=== PATIENT | female | born 1985 | race African-American/Black ===

== ENCOUNTER 2018-07-05 12:21 | Inpatient (IN) ==
[2018-07-05] MEDS ORDERED: CEFTAROLINE 600 MG in SODIUM CHLORIDE 0.9% 100 ML IV STA (15:10)
[2018-07-05 15:43] LABS: Basophils # 0.1 10*3/uL (0.0-0.2); Basophils % 0.6 % (0.0-0.8); Eosinophils # 0.1 10*3/uL (0.0-0.87); Eosinophils % 0.6 % (0.00-10.9); Hematocrit 41.5 VOL% (35.7-47.0); Hemoglobin 13.5 GM/DL (12.0-16.0); Immature Granulocytes % 0.5 %; Immature Granulocytes Absolute 0.04 #; Lymphocytes # 3.1 10*3/uL (1.4-4.0); Lymphocytes % 35.4 % (21.3-54.2); Mean Corpuscular HGB Conc 32.5 GM/DL (32-36); Mean Corpuscular Hemoglobin 27 PG (27-34); Mean Corpuscular Volume 82.8 FL (87-102); Mean Platelet Volume 12.5 FL (9.6-12.0); Monocytes # 0.7 10*3/uL (0.11-0.8); Monocytes % 7.6 % (1.7-12.7); Neutrophils # 4.8 10*3/uL (1.4-7.4); Neutrophils % 55.3 % (38.7-73.9); Platelet Count 240 T/CUMM (130-400); Red Blood Count 5.01 MC/CUMM (3.8-5.5); Red Cell Distribution Width 13.4 % (9.3-17.3); White Blood Count 8.7 T/CUMM (4-12)
[2018-07-05] MEDS ORDERED: ACETAMINOPHEN 500 MG TABLET ONE (16:00)
[2018-07-05] MEDS ORDERED: ACETAMINOPHEN 500 MG TABLET PO STA (16:05)
[2018-07-05 16:12] LABS: Alanine Aminotransferase 25 U/L (13-56); Albumin 3.3 G/DL (3.4-5.0); Alkaline Phosphatase 119 U/L (45-117); Aspartate Amino Transferase 20 U/L (0-37); Bilirubin,Total < 0.39 MG/DL (0.2-1.0); Blood Urea Nitrogen 9 MG/DL (7-18); Calcium 8.8 MG/DL (8.5-10.1); Glucose 374 MG/DL (74-106); Osmolality,Calculated 281.2 MOS/KG (273-304); Sodium 134 MMOL/L (136-145); Total Protein 8.1 G/DL (6.4-8.3)
[2018-07-05] MEDS ORDERED: GLUCAGON 1 MG VIAL IM PRN (17:32)
[2018-07-05] MEDS ORDERED: ONDANSETRON 4 MG/2 ML VIAL IV PRN (17:32)
[2018-07-05] MEDS ORDERED: ACETAMINOPHEN 325 MG TABLET PO PRN (17:32)
[2018-07-05] MEDS ORDERED: HYDROmorphone 2 MG/1 ML VIAL IV PRN (17:32)
[2018-07-05] MEDS ORDERED: DEXTROSE 50% 25 GM/50 ML SYRINGE IV PRN (17:32)
[2018-07-05] MEDS ORDERED: hydrALAZINE 20 MG/1 ML VIAL IV PRN (18:00)
[2018-07-05] MEDS ORDERED: INFLUENZA VIRUS VACCINE 0.5 ML SYRINGE IM ONE (18:06)
[2018-07-05] MEDS: LISINOPRIL 20 MG TABLET PO SCH (19:14)
[2018-07-05] MEDS: INSULIN REGULAR 100 UNIT/ML SUBCUT SCH (19:16)
[2018-07-05] MEDS: SODIUM CHLORIDE 0.9% 1,000 ML IV SCH (19:20)
[2018-07-06] MEDS: INSULIN REGULAR 100 UNIT/ML SUBCUT SCH ×5 (01:30→23:53)
[2018-07-06] MEDS: CEFTAROLINE 600 MG in SODIUM CHLORIDE 0.9% 100 ML IV SCH ×2 (03:25→15:54)
[2018-07-06 06:07] LABS: Basophils % 0.5 % (0.0-0.8); Eosinophils # 0.1 10*3/uL (0.0-0.87); Eosinophils % 1.1 % (0.00-10.9); Hematocrit 37.4 VOL% (35.7-47.0); Immature Granulocytes % 0.6 %; Immature Granulocytes Absolute 0.04 #; Lymphocytes # 2.8 10*3/uL (1.4-4.0); Mean Corpuscular HGB Conc 32.1 GM/DL (32-36); Mean Corpuscular Hemoglobin 27 PG (27-34); Mean Corpuscular Volume 83.9 FL (87-102); Mean Platelet Volume 13.1 FL (9.6-12.0); Monocytes # 0.6 10*3/uL (0.11-0.8); Monocytes % 8.6 % (1.7-12.7); Neutrophils # 3.1 10*3/uL (1.4-7.4); Neutrophils % 47.2 % (38.7-73.9); Platelet Count 215 T/CUMM (130-400); Red Blood Count 4.46 MC/CUMM (3.8-5.5); Red Cell Distribution Width 13.4 % (9.3-17.3); White Blood Count 6.6 T/CUMM (4-12)
[2018-07-06 06:26] LABS: Albumin 2.7 G/DL (3.4-5.0); Bilirubin,Total 0.6 MG/DL (0.2-1.0); Calcium 8.2 MG/DL (8.5-10.1); Osmolality,Calculated 284.7 MOS/KG (273-304); Potassium 3.6 MMOL/L (3.5-5.1); Total Protein 6.5 G/DL (6.4-8.3)
[2018-07-06] MEDS: LISINOPRIL 20 MG TABLET PO SCH (08:45)
[2018-07-06] MEDS: PANTOPRAZOLE 40 MG TABLET PO SCH (09:00)
[2018-07-06] MEDS: ENOXAPARIN 40 MG/0.4 ML SYRINGE SUBCUT SCH (09:00)
[2018-07-06] MEDS ORDERED: INSULIN GLARGINE 100 UNIT/ML SUBCUT SCH ×2 (09:00→11:00)
[2018-07-06] MEDS: SODIUM CHLORIDE 0.9% 1,000 ML IV SCH (09:03)
[2018-07-06] MEDS ORDERED: LIDOCAINE 1% 20 ML VIAL ONE (09:43)
[2018-07-06] MEDS ORDERED: Empagliflozin [Jardiance] 25 MG PO SCH (11:00)
[2018-07-06] MEDS ORDERED: PROPOFOL 200 MG/20 ML VIAL IV ONE (12:02)
[2018-07-06] MEDS ORDERED: HYDROmorphone 2 MG/1 ML VIAL ONE (12:02)
[2018-07-06] MEDS ORDERED: ONDANSETRON 4 MG/2 ML VIAL ONE (12:02)
[2018-07-06] MEDS ORDERED: KETOROLAC 30 MG/1 ML VIAL ONE (12:02)
[2018-07-06] MEDS ORDERED: SEVOFLURANE 1 UNIT/15 MINUTE INH ONE (12:02)
[2018-07-06] MEDS ORDERED: PHENYLEPHRINE 1 MG/10 ML SYRINGE IV ONE (12:03)
[2018-07-06] MEDS ORDERED: hydrALAZINE 20 MG/1 ML VIAL IV ONE (12:45)
[2018-07-06] MEDS: sitaGLIPtin 100 MG TABLET PO SCH (13:23)
[2018-07-06] MEDS ORDERED: cloNIDine 0.1 MG TABLET PO PRN (14:20)
[2018-07-06] MEDS ORDERED: amLODIPine 5 MG TABLET PO ONE (14:20)
[2018-07-06] MEDS ORDERED: hydrALAZINE 20 MG/1 ML VIAL IV PRN (14:21)
[2018-07-07] MEDS: CEFTAROLINE 600 MG in SODIUM CHLORIDE 0.9% 100 ML IV SCH (03:31)
[2018-07-07] MEDS: INSULIN REGULAR 100 UNIT/ML SUBCUT SCH (06:44)
[2018-07-07] MEDS ORDERED: INSULIN GLARGINE 100 UNIT/ML SUBCUT SCH ×2 (06:46→06:47)
[2018-07-07] MEDS: PANTOPRAZOLE 40 MG TABLET PO SCH (08:51)
[2018-07-07] MEDS: LISINOPRIL 20 MG TABLET PO SCH (08:51)
[2018-07-07] MEDS: sitaGLIPtin 100 MG TABLET PO SCH (08:52)
[2018-07-07] MEDS: ENOXAPARIN 40 MG/0.4 ML SYRINGE SUBCUT SCH (08:52)
[2018-07-07] MEDS ORDERED: amLODIPine 5 MG TABLET PO SCH (09:00)
[2018-07-07 10:29] VITALS: BP 162/88
== END 2018-07-07 11:30 | disposition home or self-care (01) | DRG 380 ==
LOC: N.ED 12:21 → N.EDINP 15:41 → N.3E 17:06
PROVIDERS: ADMIT Surgery; ATTEND Surgery

== ENCOUNTER 2019-09-10 18:00 | Observation (INO) ==
[2019-09-10] MEDS ORDERED: ONDANSETRON 4 MG/2 ML VIAL IV STA (18:49)
[2019-09-10] MEDS ORDERED: hydrALAZINE 20 MG/1 ML VIAL IV STA (18:49)
[2019-09-10 19:03] LABS: Basophils % 0.3 % (0.0-0.8); Eosinophils # 0.1 10*3/uL (0.0-0.87); Eosinophils % 0.5 % (0.00-10.9); Hematocrit 32.3 VOL% (35.7-47.0); Hemoglobin 10.7 GM/DL (12.0-16.0); Immature Granulocytes % 0.3 %; Immature Granulocytes Absolute 0.03 #; Lymphocytes # 1.6 10*3/uL (1.4-4.0); Lymphocytes % 15.8 % (21.3-54.2); Mean Corpuscular HGB Conc 33.1 GM/DL (32-36); Mean Corpuscular Volume 83.5 FL (87-102); Mean Platelet Volume 11.4 FL (9.6-12.0); Monocytes % 6.1 % (1.7-12.7); Platelet Count 212 T/CUMM (130-400); Red Blood Count 3.87 MC/CUMM (3.8-5.5); Red Cell Distribution Width 13.9 % (9.3-17.3); White Blood Count 10.2 T/CUMM (4-12)
[2019-09-10 19:33] LABS: Alanine Aminotransferase 29 U/L (13-56); Albumin 2.8 G/DL (3.4-5.0); Alkaline Phosphatase 59 U/L (45-117); Amylase 25 U/L (25-115); Aspartate Amino Transferase 17 U/L (0-37); Bilirubin,Total < 0.39 MG/DL (0.2-1.0); Blood Urea Nitrogen 6 MG/DL (7-18); Calcium 7.8 MG/DL (8.5-10.1); Estimated Glom Filtration Rate 212 ML/MIN; Glucose 147 MG/DL (74-106); Osmolality,Calculated 270.1 MOS/KG (273-304); Total Protein 6.7 G/DL (6.4-8.3); Troponin I < 0.015 NG/ML (0.00-0.045)
[2019-09-10 19:40] LABS: Apearance,Urine CLEAR (Clear); Bilirubin,Urine Negative (Negative); Blood, Urine Small mg/dL (Negative); Glucose,Urine (UA) 50 mg/dL (Negative); Ketones,Urine 80 mg/dL (Negative); Mucus,Urine Occasional /LPF (Occasional); Nitrite,Urine Negative (Negative); Protein,Urine >=500 MG/DL; RBC,Urine 8 /HPF (0-4); Squamous Epithelial Cell,Urine Occasional /HPF (0-10); Urine Color Yellow (Yellow); Urine Specific Gravity 1.016 (1.001-1.035); WBC,Urine 3 /HPF (0-6)
[2019-09-10] MEDS ORDERED: MAGNESIUM SULF RIDER 2 GM in PREMIX 1 EACH IV STA (19:45)
[2019-09-10] MEDS ORDERED: POTASSIUM CHLORIDE 20 MEQ TABLET PO STA (19:46)
[2019-09-10] MEDS ORDERED: DEXTROSE 50% 25 GM/50 ML SYRINGE IV PRN (22:17)
[2019-09-10] MEDS ORDERED: ACETAMINOPHEN 325 MG TABLET PO PRN (22:17)
[2019-09-10] MEDS ORDERED: SODIUM CHLORIDE 0.9% 1,000 ML IV SCH (22:17)
[2019-09-10] MEDS ORDERED: PROMETHAZINE 25 MG/1 ML VIAL IM PRN (22:17)
[2019-09-10] MEDS ORDERED: GLUCAGON 1 MG VIAL IM PRN (22:17)
[2019-09-10] MEDS ORDERED: hydrALAZINE 20 MG/1 ML VIAL IV PRN (22:17)
[2019-09-10] MEDS: INSULIN REGULAR 100 UNIT/ML SUBCUT SCH (22:30)
[2019-09-10] MEDS: POTASSIUM CHLORIDE RIDER 10 MEQ in PREMIX 1 EACH IV PRN (23:18)
[2019-09-10] MEDS: PANTOPRAZOLE 40 MG VIAL IV SCH (23:18)
[2019-09-11] MEDS: POTASSIUM CHLORIDE RIDER 10 MEQ in PREMIX 1 EACH IV PRN (00:39)
[2019-09-11] MEDS: ONDANSETRON 4 MG/2 ML VIAL IV PRN ×2 (01:02→06:51)
[2019-09-11] MEDS: LABETALOL 200 MG TABLET PO SCH ×2 (02:05→06:11)
[2019-09-11] MEDS: INSULIN REGULAR 100 UNIT/ML SUBCUT SCH (06:12)
[2019-09-11 07:04] LABS: Basophils % 0.3 % (0.0-0.8); Eosinophils # 0.1 10*3/uL (0.0-0.87); Eosinophils % 0.5 % (0.00-10.9); Hematocrit 29.7 VOL% (35.7-47.0); Hemoglobin 9.6 GM/DL (12.0-16.0); Immature Granulocytes % 0.4 %; Immature Granulocytes Absolute 0.04 #; Lymphocytes # 2.5 10*3/uL (1.4-4.0); Lymphocytes % 27.6 % (21.3-54.2); Mean Corpuscular HGB Conc 32.3 GM/DL (32-36); Mean Corpuscular Volume 85.3 FL (87-102); Mean Platelet Volume 11.9 FL (9.6-12.0); Monocytes % 7.7 % (1.7-12.7); Neutrophils % 63.5 % (38.7-73.9); Platelet Count 208 T/CUMM (130-400); Red Blood Count 3.48 MC/CUMM (3.8-5.5); White Blood Count 9.1 T/CUMM (4-12)
[2019-09-11 07:10] VITALS: BP 157/90
[2019-09-11 07:28] LABS: Albumin 2.2 G/DL (3.4-5.0); Bilirubin,Total 0.9 MG/DL (0.2-1.0); Calcium 7.6 MG/DL (8.5-10.1); Osmolality,Calculated 267.1 MOS/KG (273-304); Total Protein 5.9 G/DL (6.4-8.3)
[2019-09-11] MEDS ORDERED: POTASSIUM CHLORIDE 20 MEQ TABLET PO PRN (07:32)
[2019-09-11] MEDS ORDERED: amLODIPine 5 MG TABLET PO SCH (09:00)
[2019-09-11] MEDS ORDERED: valACYclovir 500 MG TABLET PO SCH (09:00)
[2019-09-11] MEDS: PANTOPRAZOLE 40 MG VIAL IV SCH (09:30)
== END 2019-09-11 13:00 | disposition home or self-care (01) ==
LOC: EDBD → EDUNIT# → N.EDINP 18:00 → N.ED 18:00 → N.OB 21:18
PROVIDERS: ADMIT Obstetrics & Gynecology; ATTEND Obstetrics & Gynecology

== ENCOUNTER 2019-12-26 08:35 | Inpatient (IN) ==
[2019-12-26] MEDS ORDERED: LABETALOL 20 MG/4 ML SYRINGE IV PRN (09:47)
[2019-12-26] MEDS ORDERED: LABETALOL 100 MG/20 ML VIAL IV PRN ×2 (09:47)
[2019-12-26] MEDS ORDERED: MAGNESIUM SULF RIDER 4 GM in PREMIX 1 EACH IV ONE (09:47)
[2019-12-26] MEDS ORDERED: LABETALOL 100 MG/20 ML VIAL IV ONE (09:50)
[2019-12-26] MEDS ORDERED: MAGNESIUM SULF DRIP 40 GM/1,000 ML ML IV ONE (09:51)
[2019-12-26] MEDS ORDERED: MAGNESIUM SULF RIDER 100 ML IV ONE (09:51)
[2019-12-26] MEDS: BETAMETH SODIUM PHOS/ACETATE 30 MG/5 ML VIAL IM SCH ×2 (09:55→22:06)
[2019-12-26] MEDS ORDERED: BETAMETH SODIUM PHOS/ACETATE 30 MG/5 ML VIAL ONE (09:59)
[2019-12-26] MEDS ORDERED: MAGNESIUM SULF DRIP 40 GM/1,000 ML ML IV SCH (10:00)
[2019-12-26 10:14] LABS: Basophils % 0.2 % (0.0-0.8); Eosinophils % 0.3 % (0.00-10.9); Hematocrit 31.7 VOL% (35.7-47.0); Hemoglobin 10.7 GM/DL (12.0-16.0); Immature Granulocytes % 0.3 %; Immature Granulocytes Absolute 0.03 #; Lymphocytes # 2.1 10*3/uL (1.4-4.0); Lymphocytes % 23.8 % (21.3-54.2); Mean Corpuscular HGB Conc 33.8 GM/DL (32-36); Mean Corpuscular Volume 82.8 FL (87-102); Mean Platelet Volume 11.3 FL (9.6-12.0); Monocytes % 6.3 % (1.7-12.7); Neutrophils % 69.1 % (38.7-73.9); Platelet Count 240 T/CUMM (130-400); Red Blood Count 3.83 MC/CUMM (3.8-5.5); Red Cell Distribution Width 13.2 % (9.3-17.3); White Blood Count 8.8 T/CUMM (4-12)
[2019-12-26 10:29] LABS: INR 0.9; PT Patient Result 10.2 SECS (9.8-11.9); Partial Thromboplastin Time 28.9 SECS (23.9-33.8)
[2019-12-26 10:32] LABS: Alanine Aminotransferase 16 U/L (13-56); Albumin 2.1 G/DL (3.4-5.0); Alkaline Phosphatase 89 U/L (45-117); Aspartate Amino Transferase 17 U/L (0-37); Bilirubin,Direct < 0.100 MG/DL (0.0-0.20); Bilirubin,Total < 0.39 MG/DL (0.2-1.0); Blood Urea Nitrogen 7 MG/DL (7-18); Estimated Glom Filtration Rate 195 ML/MIN; Glucose 118 MG/DL (74-106); Osmolality,Calculated 271.8 MOS/KG (273-304); Total Protein 7.3 G/DL (6.4-8.3)
[2019-12-26 10:40] LABS: Apearance,Urine CLOUDY (Clear); Bacteria,Urine Occasional /HPF (Few); Bilirubin,Urine Negative (Negative); Blood, Urine Small mg/dL (Negative); Glucose,Urine (UA) 50 mg/dL (Negative); Hyaline Casts,Urine 31 /LPF (0-3); Ketones,Urine 80 mg/dL (Negative); Mucus,Urine Occasional /LPF (Occasional); Nitrite,Urine Negative (Negative); Protein,Urine >=500 MG/DL; RBC,Urine 7 /HPF (0-4); Squamous Epithelial Cell,Urine Many /HPF (0-10); Urine Color Amber (Yellow); Urine Specific Gravity 1.024 (1.001-1.035); WBC,Urine 5 /HPF (0-6)
[2019-12-26] MEDS: LACTATED RINGERS 1,000 ML IV SCH (10:45)
[2019-12-26] MEDS ORDERED: DEXTROSE 50% 25 GM/50 ML VIAL IV PRN (11:37)
[2019-12-26] MEDS ORDERED: GLUCAGON 1 MG VIAL IM PRN (11:37)
[2019-12-26] MEDS ORDERED: ONDANSETRON 4 MG/2 ML VIAL IV PRN (11:58)
[2019-12-26] MEDS ORDERED: ONDANSETRON 4 MG/2 ML VIAL ONE (11:59)
[2019-12-26 13:26] LABS: Apearance,Urine Slightly Hazy (Clear); Bilirubin,Urine Negative (Negative); Blood, Urine Small mg/dL (Negative); Glucose,Urine (UA) 50 mg/dL (Negative); Hyaline Casts,Urine 2 /LPF (0-3); Ketones,Urine 80 mg/dL (Negative); Mucus,Urine Occasional /LPF (Occasional); Nitrite,Urine Negative (Negative); Protein,Urine >=500 MG/DL; RBC,Urine 6 /HPF (0-4); Squamous Epithelial Cell,Urine Occasional /HPF (0-10); Urine Color Amber (Yellow); Urine Specific Gravity 1.028 (1.001-1.035); Urine Urobilinogen < 2.0 EU/DL (0.2-1.0); WBC,Urine 3 /HPF (0-6)
[2019-12-26] MEDS: ALUMINUM/MAGNES/SIMETH MAX STR 30 ML UDCUP PO PRN ×2 (14:21→20:58)
[2019-12-26] MEDS: LABETALOL 200 MG TABLET PO SCH ×3 (14:37→20:06)
[2019-12-26] MEDS: OMEPRAZOLE ODT 20 MG TABLET PER TUBE SCH (15:07)
[2019-12-26] MEDS: INSULIN REGULAR 100 UNIT/ML SUBCUT SCH ×2 (16:40→21:17)
[2019-12-26] MEDS ORDERED: ACETAMINOPHEN 500 MG TABLET PO PRN (17:44)
[2019-12-27] MEDS: LACTATED RINGERS 1,000 ML IV SCH (01:36)
[2019-12-27] MEDS: INSULIN REGULAR 100 UNIT/ML SUBCUT SCH (07:13)
[2019-12-27] MEDS: LABETALOL 200 MG TABLET PO SCH (08:55)
[2019-12-27] MEDS: OMEPRAZOLE ODT 20 MG TABLET PER TUBE SCH (08:56)
[2019-12-27 10:25] VITALS: BP 167/86
[2019-12-27 13:51] LABS: Total Protein 24 Hr Ur Result 5107 MG/24HR (0-149.1); Total Volume,Urine 775 ML (400-2000)
[2019-12-27 13:52] LABS: Creatinine Clearance Urine 76.86 ML/MIN (70-115)
== END 2019-12-27 10:32 | disposition left against medical advice (07) | DRG 566 ==
LOC: N.LDOUT 08:35 → N.LD 08:46
PROVIDERS: ADMIT Obstetrics & Gynecology; ATTEND Obstetrics & Gynecology

== ENCOUNTER 2021-08-11 21:53 | Inpatient (IN) ==
[2021-08-11] MEDS ORDERED: hydrALAZINE 20 MG/1 ML VIAL IV STA (22:03)
[2021-08-11] MEDS ORDERED: ONDANSETRON 4 MG/2 ML VIAL IV STA (22:03)
[2021-08-11] MEDS ORDERED: SODIUM CHLORIDE 0.9% 1,000 ML IV STA (22:03)
[2021-08-11] MEDS ORDERED: LABETALOL 20 MG/4 ML SYRINGE IV STA ×2 (22:47→23:46)
[2021-08-11] MEDS ORDERED: NITROGLYCERIN 2% OINT 1 INCH/GM PACK TOP STA (22:52)
[2021-08-11] MEDS ORDERED: PROMETHAZINE 25 MG/1 ML VIAL IM STA (22:52)
[2021-08-11] MEDS ORDERED: PROMETHAZINE 25 MG/1 ML VIAL ONE (22:53)
[2021-08-11] MEDS ORDERED: NITROGLYCERIN 2% OINT 1 INCH/GM PACK TOP ONE (22:53)
[2021-08-11 23:08] LABS: Basophils # 0.1 10*3/uL (0.0-0.2); Basophils % 0.5 % (0.0-0.8); Eosinophils % 0.1 % (0.00-10.9); Hematocrit 28.3 VOL% (35.7-47.0); Hemoglobin 8.1 GM/DL (12.0-16.0); Immature Granulocytes % 0.5 %; Immature Granulocytes Absolute 0.05 #; Lymphocytes # 0.8 10*3/uL (1.4-4.0); Lymphocytes % 8.5 % (21.3-54.2); Mean Corpuscular HGB Conc 28.6 GM/DL (32-36); Mean Corpuscular Volume 83.7 FL (87-102); Monocytes % 2.3 % (1.7-12.7); Neutrophils % 88.1 % (38.7-73.9); Platelet Count 350 T/CUMM (130-400); Red Blood Count 3.38 MC/CUMM (3.8-5.5); White Blood Count 9.1 T/CUMM (4-12)
[2021-08-11 23:32] LABS: Albumin 1.8 G/DL (3.4-5.0); Bilirubin,Total 0.4 MG/DL (0.20-1.00); Calcium 8.4 MG/DL (8.5-10.1); Potassium 4.2 MMOL/L (3.5-5.1); Total Protein 6.6 G/DL (6.4-8.2)
[2021-08-11 23:49] LABS: Bilirubin,Urine Negative (Negative); Blood, Urine Moderate mg/dL (Negative); Glucose,Urine (UA) 100 mg/dL (Negative); Ketones,Urine 15 mg/dL (Negative); Nitrite,Urine Negative (Negative); Protein,Urine >=300 mg/dL (Negative); Urine Appearance SL CLOUDY (Clear); Urine Color Yellow (Yellow); Urine Specific Gravity 1.025 (1.001-1.035); Urine Urobilinogen 0.2 eU/dL (<2.0); Urine pH 6.5 (4.5-8.0)
[2021-08-11 23:52] LABS: Bacteria,Urine Moderate /HPF (Few); Hyaline Casts,Urine 14 /LPF (0-3); Mucus,Urine Occasional /LPF (Occasional); RBC,Urine 9 /HPF (0-4); Squamous Epithelial Cell,Urine Occasional /HPF (0-10)
[2021-08-12] MEDS ORDERED: NICOTINE 21 MG/24 HR PATCH TRANSDERM PRN
[2021-08-12] MEDS ORDERED: hydrALAZINE 20 MG/1 ML VIAL IV PRN
[2021-08-12] MEDS ORDERED: ACETAMINOPHEN 325 MG TABLET PO PRN
[2021-08-12] MEDS ORDERED: guaiFENesin/DM ER 600-30 MG TABLET PO PRN
[2021-08-12] MEDS ORDERED: ZALEPLON 5 MG CAPSULE PO PRN
[2021-08-12] MEDS ORDERED: GLUCAGON 1 MG VIAL IM PRN ×2
[2021-08-12] MEDS ORDERED: PROMETHAZINE 25 MG TABLET PO PRN
[2021-08-12] MEDS ORDERED: diphenhydrAMINE CAP 25 MG CAPSULE PO PRN
[2021-08-12] MEDS ORDERED: DEXTROSE 50% 25 GM/50 ML VIAL IV PRN
[2021-08-12] MEDS ORDERED: DEXTROSE 10% 250 ML BAG IV PRN (00:09)
[2021-08-12] MEDS: ONDANSETRON 4 MG/2 ML VIAL IV PRN ×4 (00:42→20:38)
[2021-08-12] MEDS: SODIUM CHLORIDE 0.9% 1,000 ML IV SCH ×2 (00:58→12:36)
[2021-08-12] MEDS: PROMETHAZINE 25 MG/1 ML VIAL IM PRN ×2 (01:06→06:15)
[2021-08-12] MEDS ORDERED: cloNIDine 0.2 MG/24 HR PATCH TRANSDERM ONE (01:09)
[2021-08-12] MEDS ORDERED: FUROSEMIDE 40 MG/4 ML VIAL IV ONE (02:53)
[2021-08-12 04:11] LABS: Basophils % 0.4 % (0.0-0.8); Hematocrit 23.6 VOL% (35.7-47.0); Hemoglobin 7.2 GM/DL (12.0-16.0); Immature Granulocytes % 0.7 %; Immature Granulocytes Absolute 0.07 #; Lymphocytes # 0.8 10*3/uL (1.4-4.0); Lymphocytes % 7.9 % (21.3-54.2); Mean Corpuscular HGB Conc 30.5 GM/DL (32-36); Mean Corpuscular Volume 78.9 FL (87-102); Mean Platelet Volume 11.3 FL (9.6-12.0); Monocytes % 2.8 % (1.7-12.7); Neutrophils % 88.2 % (38.7-73.9); Platelet Count 342 T/CUMM (130-400); Red Blood Count 2.99 MC/CUMM (3.8-5.5); Red Cell Distribution Width 18.7 % (9.3-17.3); White Blood Count 10.6 T/CUMM (4-12)
[2021-08-12 04:27] LABS: Potassium 4.2 MMOL/L (3.5-5.1)
[2021-08-12 05:16] LABS: Sedimentation Rate-Westergren 135 MM/HR (0-20)
[2021-08-12] MEDS: INSULIN LISPRO 100 UNIT/ML SUBCUT SCH ×4 (07:45→21:00)
[2021-08-12] MEDS: INSULIN GLARGINE 100 UNIT/ML SUBCUT SCH (09:03)
[2021-08-12] MEDS: PANTOPRAZOLE 40 MG TABLET PO SCH (09:04)
[2021-08-12] MEDS: LABETALOL 200 MG TABLET PO SCH ×2 (09:21→20:30)
[2021-08-12 09:43] LABS: % Iron Saturation 10.2 % (18-50); Ferritin 16.9 ng/mL (8-252)
[2021-08-12 09:59] LABS: Vitamin B12 347 PG/ML (211-911)
[2021-08-12 13:38] LABS: Hemoglobin A1 (Alkaline) 97.8 % (96.5-98.5); Hemoglobin A2 (Alkaline) 2.2 % (1.5-3.5)
[2021-08-12] MEDS: FERRIC GLUCONATE COMPLEX 125 MG in SODIUM CHLORIDE 0.9% 100 ML IV SCH (14:01)
[2021-08-12] MEDS ORDERED: SODIUM BICARB INJ 150 MEQ in STERILE WATER INJ 850 ML IV SCH (15:00)
[2021-08-12] MEDS: HEPARIN 5,000 UNIT/1 ML VIAL SUBCUT SCH (15:27)
[2021-08-12 16:33] LABS: Barbiturates Screen,Urine Negative (Negative); Benzodiazepines Screen,Urine Negative (Negative); Cannabinoid Screen,Urine Negative (Negative); Opiate Screen,Urine Negative (Negative); Phencyclidine Screen,Urine Negative (Negative)
[2021-08-12] MEDS: FUROSEMIDE 40 MG/4 ML VIAL IV SCH (17:05)
[2021-08-12] MEDS ORDERED: INSULIN GLARGINE 100 UNIT/ML SUBCUT SCH (21:00)
[2021-08-13 05:18] LABS: Basophils % 0.2 % (0.0-0.8); Eosinophils % 0.1 % (0.00-10.9); Hematocrit 19.9 VOL% (35.7-47.0); Immature Granulocytes % 0.7 %; Immature Granulocytes Absolute 0.07 #; Lymphocytes # 1.2 10*3/uL (1.4-4.0); Lymphocytes % 11.7 % (21.3-54.2); Mean Corpuscular HGB Conc 30.7 GM/DL (32-36); Neutrophils % 79.3 % (38.7-73.9); Platelet Count 318 T/CUMM (130-400); Red Blood Count 2.55 MC/CUMM (3.8-5.5); Red Cell Distribution Width 18.7 % (9.3-17.3); White Blood Count 10.5 T/CUMM (4-12)
[2021-08-13 05:22] LABS: Hemoglobin 6.1 GM/DL (12.0-16.0)
[2021-08-13] MEDS ORDERED: SODIUM CHLORIDE 0.9% 1,000 ML IV PRN (05:40)
[2021-08-13] MEDS: INSULIN LISPRO 100 UNIT/ML SUBCUT SCH ×2 (08:22→12:22)
[2021-08-13 08:45] LABS: Alanine Aminotransferase 16 U/L (13-56); Albumin 1.5 G/DL (3.4-5.0); Alkaline Phosphatase 57 U/L (45-117); Aspartate Amino Transferase 18 U/L (0-37); Bilirubin,Total < 0.39 MG/DL (0.20-1.00); Blood Urea Nitrogen 29 MG/DL (7-18); Calcium 7.8 MG/DL (8.5-10.1); Carbon Dioxide 20 MMOL/L (21-32); Estimated Glom Filtration Rate 25 ML/MIN; Glucose 116 MG/DL (74-106); Osmolality,Calculated 292.8 MOS/KG (273-304); Potassium 3.7 MMOL/L (3.5-5.1); Sodium 144 MMOL/L (136-145); Total Protein 5.2 G/DL (6.4-8.2)
[2021-08-13] MEDS: PANTOPRAZOLE 40 MG TABLET PO SCH (09:22)
[2021-08-13] MEDS: LABETALOL 200 MG TABLET PO SCH (09:22)
[2021-08-13] MEDS: INSULIN GLARGINE 100 UNIT/ML SUBCUT SCH (09:22)
[2021-08-13] MEDS: FERRIC GLUCONATE COMPLEX 125 MG in SODIUM CHLORIDE 0.9% 100 ML IV SCH (09:42)
[2021-08-13] MEDS: FUROSEMIDE 40 MG/4 ML VIAL IV SCH (11:21)
[2021-08-13] MEDS: HEPARIN 5,000 UNIT/1 ML VIAL SUBCUT SCH (11:21)
[2021-08-13 14:30] VITALS: BP 156/90
[2021-08-13] MEDS ORDERED: PANTOPRAZOLE 40 MG TABLET PO SCH (21:00)
[2021-08-16 14:41] LABS: Glomerular Basement Membrane A < 0.2 U; Myeloperoxidase Antibody < 0.2 U
[2021-08-16 14:55] LABS: Antinuclear Ab, S 0.2 U
== END 2021-08-13 16:45 | disposition left against medical advice (07) | DRG 199 ==
LOC: EDBD → EDUNIT# → N.ED 21:53 → N.EDINP 08-12 → N.TELES 08-12 11:54
PROVIDERS: ADMIT Internal Medicine; ATTEND Internal Medicine

== ENCOUNTER 2021-11-25 05:36 | Inpatient (IN) ==
[2021-11-25] MEDS ORDERED: ONDANSETRON 4 MG/2 ML VIAL IV STA (06:10)
[2021-11-25] MEDS ORDERED: hydrALAZINE 20 MG/1 ML VIAL IV STA ×2 (06:12→07:36)
[2021-11-25] MEDS ORDERED: FUROSEMIDE 40 MG/4 ML VIAL IV STA ×2 (06:12→06:14)
[2021-11-25 06:25] LABS: Basophils # 0.1 10*3/uL (0.0-0.2); Basophils % 0.8 % (0.0-0.8); Eosinophils # 0.1 10*3/uL (0.0-0.87); Eosinophils % 0.6 % (0.00-10.9); Hematocrit 23.3 VOL% (35.7-47.0); Hemoglobin 6.7 GM/DL (12.0-16.0); Immature Granulocytes % 0.7 %; Immature Granulocytes Absolute 0.06 #; Lymphocytes # 1.1 10*3/uL (1.4-4.0); Lymphocytes % 12.1 % (21.3-54.2); Mean Corpuscular HGB Conc 28.8 GM/DL (32-36); Mean Corpuscular Volume 82.3 FL (87-102); Mean Platelet Volume 11.4 FL (9.6-12.0); Monocytes # 0.5 10*3/uL (0.11-0.8); Monocytes % 5.2 % (1.7-12.7); Neutrophils % 80.6 % (38.7-73.9); Platelet Count 359 T/CUMM (130-400); Red Blood Count 2.83 MC/CUMM (3.8-5.5); Red Cell Distribution Width 17.7 % (9.3-17.3); White Blood Count 8.9 T/CUMM (4-12)
[2021-11-25 06:38] LABS: Albumin 2.1 G/DL (3.4-5.0); Bilirubin,Total 0.5 MG/DL (0.20-1.00); Calcium 8.3 MG/DL (8.5-10.1); Osmolality,Calculated 293.8 MOS/KG (273-304); Potassium 4.4 MMOL/L (3.5-5.1); Total Protein 5.8 G/DL (6.4-8.2)
[2021-11-25] MEDS ORDERED: MORPHINE 10 MG/1 ML VIAL IV STA (07:36)
[2021-11-25 08:57] LABS: Hyaline Casts,Urine 11 /LPF (0-3); Mucus,Urine Occasional /LPF (Occasional); RBC,Urine 404 /HPF (0-4); Squamous Epithelial Cell,Urine Occasional /HPF (0-10); Urine Appearance Clear (Clear); Urine Color Yellow (Yellow); Urine Specific Gravity 1.025 (1.001-1.035)
[2021-11-25 08:58] LABS: Bilirubin,Urine Negative (Negative); Blood, Urine Large mg/dL (Negative); Glucose,Urine (UA) Negative (Negative); Ketones,Urine Trace mg/dL (Negative); Nitrite,Urine Negative (Negative); Protein,Urine >=300 mg/dL (Negative); Urine Urobilinogen 0.2 eU/dL (<2.0)
[2021-11-25] MEDS ORDERED: ACETAMINOPHEN 325 MG TABLET PO PRN (09:06)
[2021-11-25] MEDS ORDERED: DEXTROSE 10% 250 ML BAG IV PRN (09:06)
[2021-11-25] MEDS ORDERED: DOCUSATE SODIUM 100 MG CAPSULE PO PRN (09:06)
[2021-11-25] MEDS ORDERED: hydrALAZINE 20 MG/1 ML VIAL IV PRN (09:06)
[2021-11-25] MEDS ORDERED: GLUCAGON 1 MG VIAL IM PRN (09:06)
[2021-11-25] MEDS ORDERED: SODIUM CHLORIDE 0.9% 1,000 ML IV PRN (09:17)
[2021-11-25] MEDS ORDERED: MORPHINE 2 MG/1 ML SYRINGE ONE (09:18)
[2021-11-25 11:14] LABS: Hypochromia 3+; Target Cells Few; Tear Drop Cells Few
[2021-11-25 11:15] LABS: Burr Cells Few; Platelet Estimate Normal
[2021-11-25] MEDS: INSULIN REGULAR 100 UNIT/ML SUBCUT SCH ×3 (11:27→21:51)
[2021-11-25] MEDS: FERROUS SULFATE 325 MG TABLET PO SCH (11:32)
[2021-11-25] MEDS: atenoloL 50 MG TABLET PO SCH (11:32)
[2021-11-25] MEDS: ONDANSETRON 4 MG/2 ML VIAL IV PRN ×2 (13:37→18:04)
[2021-11-26] MEDS ORDERED: LEVOTHYROXINE 25 MCG TABLET PO SCH (06:30)
[2021-11-26] MEDS: INSULIN REGULAR 100 UNIT/ML SUBCUT SCH (07:57)
[2021-11-26 08:16] LABS: Basophils # 0.1 10*3/uL (0.0-0.2); Basophils % 0.7 % (0.0-0.8); Eosinophils # 0.1 10*3/uL (0.0-0.87); Eosinophils % 0.8 % (0.00-10.9); Hematocrit 24.8 VOL% (35.7-47.0); Hemoglobin 7.6 GM/DL (12.0-16.0); Immature Granulocytes % 0.5 %; Immature Granulocytes Absolute 0.05 #; Lymphocytes # 1.2 10*3/uL (1.4-4.0); Lymphocytes % 13.1 % (21.3-54.2); Mean Corpuscular HGB Conc 30.6 GM/DL (32-36); Mean Corpuscular Volume 81.6 FL (87-102); Mean Platelet Volume 11.6 FL (9.6-12.0); Monocytes # 0.6 10*3/uL (0.11-0.8); Monocytes % 6.9 % (1.7-12.7); Platelet Count 315 T/CUMM (130-400); Red Blood Count 3.04 MC/CUMM (3.8-5.5); Red Cell Distribution Width 18.2 % (9.3-17.3); White Blood Count 9.2 T/CUMM (4-12)
[2021-11-26 08:31] VITALS: BP 159/84
[2021-11-26 08:50] LABS: Calcium 8.2 MG/DL (8.5-10.1); Osmolality,Calculated 290.1 MOS/KG (273-304); Potassium 3.8 MMOL/L (3.5-5.1)
[2021-11-26 08:51] LABS: Calcium 8.3 MG/DL (8.5-10.1); Osmolality,Calculated 290.1 MOS/KG (273-304); Potassium 3.8 MMOL/L (3.5-5.1); Risk Ratio 3.63; Thyroid Stimulating Hormone 2.77 uIU/ml (0.358-3.74); VLDL Cholesterol 20.6 MG/DL
[2021-11-26] MEDS ORDERED: FUROSEMIDE 40 MG/4 ML VIAL IV SCH (09:00)
[2021-11-26] MEDS: atenoloL 50 MG TABLET PO SCH (09:02)
[2021-11-26] MEDS: FERROUS SULFATE 325 MG TABLET PO SCH (09:02)
[2021-11-26] MEDS ORDERED: ROSUVASTATIN 10 MG TABLET PO SCH (21:00)
== END 2021-11-26 11:57 | disposition home or self-care (01) | DRG 194 ==
LOC: N.ED 05:36 → SUATTDRO 09:06 → N.EDINP 09:06 → N.5E 14:41
PROVIDERS: ADMIT Internal Medicine; ATTEND Emergency Medicine

== ENCOUNTER 2022-01-16 02:28 | Inpatient (IN) ==
[2022-01-16] MEDS ORDERED: FUROSEMIDE 40 MG/4 ML VIAL IV STA (02:48)
[2022-01-16 02:54] LABS: Basophils # 0.1 10*3/uL (0.0-0.2); Basophils % 0.7 % (0.0-0.8); Eosinophils # 0.1 10*3/uL (0.0-0.87); Eosinophils % 1.5 % (0.00-10.9); Hematocrit 27.3 VOL% (35.7-47.0); Hemoglobin 8.2 GM/DL (12.0-16.0); Immature Granulocytes % 0.4 %; Immature Granulocytes Absolute 0.03 #; Lymphocytes # 1.6 10*3/uL (1.4-4.0); Lymphocytes % 19.6 % (21.3-54.2); Mean Corpuscular Volume 82.2 FL (87-102); Mean Platelet Volume 11.3 FL (9.6-12.0); Monocytes # 0.7 10*3/uL (0.11-0.8); Monocytes % 8.1 % (1.7-12.7); NRBC # 0.02 10*3/uL; Neutrophils % 69.7 % (38.7-73.9); Platelet Count 376 T/CUMM (130-400); Red Blood Count 3.32 MC/CUMM (3.8-5.5); Red Cell Distribution Width 20.9 % (9.3-17.3); White Blood Count 8.1 T/CUMM (4-12)
[2022-01-16 03:12] LABS: PT Patient Result 11.4 SECS (10.1-12.1); Partial Thromboplastin Time 26.3 SECS (23.7-32.9)
[2022-01-16 04:19] LABS: Albumin 2.1 G/DL (3.4-5.0); Bilirubin,Total 0.5 MG/DL (0.20-1.00); Calcium 8.5 MG/DL (8.5-10.1); Osmolality,Calculated 287.5 MOS/KG (273-304); Potassium 4.2 MMOL/L (3.5-5.1); Total Protein 6.2 G/DL (6.4-8.2)
[2022-01-16] MEDS ORDERED: ACETAMINOPHEN 325 MG TABLET PO PRN (04:33)
[2022-01-16] MEDS ORDERED: ALUMINUM/MAGNES/SIMETH MAX STR 30 ML UDCUP PO PRN (04:33)
[2022-01-16] MEDS ORDERED: ONDANSETRON 4 MG/2 ML VIAL IV PRN (04:33)
[2022-01-16] MEDS ORDERED: GLUCAGON 1 MG VIAL IM PRN (04:33)
[2022-01-16] MEDS ORDERED: LABETALOL 20 MG/4 ML SYRINGE IV STA (04:44)
[2022-01-16] MEDS ORDERED: DEXTROSE 10% 250 ML BAG IV PRN (04:48)
[2022-01-16] MEDS ORDERED: hydrALAZINE 20 MG/1 ML VIAL IV PRN (05:14)
[2022-01-16] MEDS: LEVOTHYROXINE 25 MCG TABLET PO SCH (05:59)
[2022-01-16] MEDS: INSULIN REGULAR 100 UNIT/ML SUBCUT SCH ×4 (08:27→20:36)
[2022-01-16 08:29] LABS: Bacteria,Urine Occasional /HPF (Few); Bilirubin,Urine Negative (Negative); Blood, Urine Small mg/dL (Negative); Glucose,Urine (UA) Negative (Negative); Hyaline Casts,Urine 4 /LPF (0-3); Ketones,Urine Negative (Negative); Mucus,Urine Occasional /LPF (Occasional); Nitrite,Urine Negative (Negative); Protein,Urine >=300 mg/dL (Negative); RBC,Urine 5 /HPF (0-4); Urine Appearance Clear (Clear); Urine Color Light Yellow (Yellow); Urine pH 5.5 (4.5-8.0)
[2022-01-16 08:30] LABS: Urine Urobilinogen 0.2 eU/dL (<2.0)
[2022-01-16] MEDS: FUROSEMIDE 40 MG/4 ML VIAL IV SCH ×2 (08:52→17:00)
[2022-01-16] MEDS ORDERED: ISOSORBIDE MONONITRATE 30 MG TABLET PO SCH (09:00)
[2022-01-16] MEDS: FERROUS SULFATE 325 MG TABLET PO SCH (10:24)
[2022-01-16] MEDS: DOCUSATE SODIUM 100 MG CAPSULE PO SCH ×2 (10:24→20:35)
[2022-01-16] MEDS: PANTOPRAZOLE 40 MG TABLET PO SCH (10:24)
[2022-01-16] MEDS: ROSUVASTATIN 10 MG TABLET PO SCH (10:24)
[2022-01-16] MEDS: atenoloL 50 MG TABLET PO SCH (10:24)
[2022-01-16] MEDS: valACYclovir 500 MG TABLET PO SCH (10:25)
[2022-01-16] MEDS: HEPARIN 5,000 UNIT/1 ML VIAL SUBCUT SCH ×2 (10:25→20:35)
[2022-01-16 19:28] LABS: Protein/Creatinine Ratio,Urine 5.3 RATIO
[2022-01-16 19:56] LABS: Hepatitis B Core IgM Quant 0.15 Index; Hepatitis B Surface Ag Quant < 0.10 Index; Hepatitis B Surface Ag Result Non-Reactive (NonReactive); Hepatitis C Virus Ab Quant 0.05 Index; Hepatitis C Virus Ab Result Non-Reactive (NonReactive)
[2022-01-17 05:05] LABS: Basophils % 0.5 % (0.0-0.8); Eosinophils # 0.1 10*3/uL (0.0-0.87); Eosinophils % 1.6 % (0.00-10.9); Hematocrit 26.5 VOL% (35.7-47.0); Hemoglobin 8.2 GM/DL (12.0-16.0); Immature Granulocytes % 0.4 %; Immature Granulocytes Absolute 0.03 #; Lymphocytes # 1.3 10*3/uL (1.4-4.0); Lymphocytes % 16.7 % (21.3-54.2); Mean Corpuscular HGB Conc 30.9 GM/DL (32-36); Mean Corpuscular Volume 80.3 FL (87-102); Mean Platelet Volume 10.9 FL (9.6-12.0); Monocytes # 0.7 10*3/uL (0.11-0.8); Monocytes % 8.4 % (1.7-12.7); NRBC # 0.03 10*3/uL; Neutrophils % 72.4 % (38.7-73.9); Platelet Count 365 T/CUMM (130-400); White Blood Count 7.7 T/CUMM (4-12)
[2022-01-17 05:39] LABS: Calcium 8.3 MG/DL (8.5-10.1); Osmolality,Calculated 282.8 MOS/KG (273-304); Potassium 4.1 MMOL/L (3.5-5.1)
[2022-01-17] MEDS: LEVOTHYROXINE 25 MCG TABLET PO SCH (05:49)
[2022-01-17 07:10] LABS: Total Protein (Chem) 6.2 G/DL (6.4-8.3)
[2022-01-17] MEDS: INSULIN REGULAR 100 UNIT/ML SUBCUT SCH ×3 (07:44→16:09)
[2022-01-17] MEDS ORDERED: metOLazone 5 MG TABLET PO SCH (09:00)
[2022-01-17 09:01] LABS: Albumin (SPE) Rel % 48.3 %; Alpha 1 (SPE) 0.3 G/DL (0.1-0.4); Alpha 1 (SPE) Rel % 4.4 %; Alpha 2 (SPE) Rel % 16.1 %; Beta (SPE) 0.7 G/DL (0.5-1.1); Beta (SPE) Rel % 11.1 %; Gamma (SPE) 1.2 G/DL (0.7-1.7); Gamma (SPE) Rel % 20.1 %
[2022-01-17] MEDS: atenoloL 50 MG TABLET PO SCH (09:10)
[2022-01-17] MEDS: DOCUSATE SODIUM 100 MG CAPSULE PO SCH (09:10)
[2022-01-17] MEDS: FERROUS SULFATE 325 MG TABLET PO SCH (09:10)
[2022-01-17] MEDS: valACYclovir 500 MG TABLET PO SCH (09:10)
[2022-01-17] MEDS: PANTOPRAZOLE 40 MG TABLET PO SCH (09:11)
[2022-01-17] MEDS: FUROSEMIDE 40 MG/4 ML VIAL IV SCH ×2 (09:12→16:08)
[2022-01-17] MEDS: HEPARIN 5,000 UNIT/1 ML VIAL SUBCUT SCH (09:13)
[2022-01-17] MEDS: ROSUVASTATIN 10 MG TABLET PO SCH (09:13)
[2022-01-17 16:13] VITALS: BP 147/87
== END 2022-01-17 17:48 | disposition home or self-care (01) | DRG 194 ==
LOC: N.ED 02:28 → SUATTDRO 04:34 → N.EDINP 04:34 → N.TELEN 10:11
PROVIDERS: ADMIT Hospitalist; ATTEND Internal Medicine Geriatric Medicine

== ENCOUNTER 2022-03-22 11:33 | Inpatient (IN) ==
[~2022-03-22 11:33] MED LIST: metOLazone 5 MG TABLET PO SCH
[2022-03-22] MEDS ORDERED: hydrALAZINE 20 MG/1 ML VIAL IV STA ×2 (12:30→13:17)
[2022-03-22] MEDS ORDERED: NITROGLYCERIN 2% OINT 1 INCH/GM PACK TOP STA (12:30)
[2022-03-22] MEDS ORDERED: FUROSEMIDE 40 MG/4 ML VIAL IV STA (12:30)
[2022-03-22 12:45] LABS: Basophils % 0.4 % (0.0-0.8); Hemoglobin 7.8 GM/DL (12.0-16.0); Immature Granulocytes % 0.6 %; Immature Granulocytes Absolute 0.04 #; Lymphocytes # 0.9 10*3/uL (1.4-4.0); Lymphocytes % 13.2 % (21.3-54.2); Mean Corpuscular Volume 77.4 FL (87-102); Mean Platelet Volume 11.2 FL (9.6-12.0); Monocytes # 0.9 10*3/uL (0.11-0.8); Monocytes % 12.7 % (1.7-12.7); NRBC # 0.05 10*3/uL; Neutrophils % 73.1 % (38.7-73.9); Platelet Count 255 T/CUMM (130-400); Red Blood Count 3.36 MC/CUMM (3.8-5.5); Red Cell Distribution Width 20.2 % (9.3-17.3); White Blood Count 6.9 T/CUMM (4-12)
[2022-03-22 12:50] LABS: INR 1.1; PT Patient Result 11.9 SECS (10.1-12.1)
[2022-03-22 13:09] LABS: Albumin 2.5 G/DL (3.4-5.0); Bilirubin,Total 0.5 MG/DL (0.20-1.00); Calcium 8.8 MG/DL (8.5-10.1); Osmolality,Calculated 297.3 MOS/KG (273-304); Potassium 4.7 MMOL/L (3.5-5.1); Total Protein 7.2 G/DL (6.4-8.2)
[2022-03-22 13:45] LABS: Amorphous Crystals,Urine Few /HPF (Few); Bacteria,Urine Many /HPF (Few); Mucus,Urine Many /LPF (Occasional); RBC,Urine 8 /HPF (0-4); Squamous Epithelial Cell,Urine Occasional /HPF (0-10); Urine Appearance Cloudy (Clear); Urine Color Yellow (Yellow)
[2022-03-22 13:46] LABS: Bilirubin,Urine Moderate mg/dL (Negative); Blood, Urine Trace mg/dL (Negative); Glucose,Urine (UA) Negative (Negative); Ketones,Urine Negative (Negative); Nitrite,Urine Negative (Negative); Protein,Urine >=300 mg/dL (Negative); Urine Specific Gravity 1.025 (1.001-1.035); Urine Urobilinogen > 8.0 eU/dL (<2.0)
[2022-03-22] MEDS ORDERED: DOCUSATE SODIUM 100 MG CAPSULE PO PRN (14:00)
[2022-03-22] MEDS ORDERED: hydrALAZINE 20 MG/1 ML VIAL IV PRN (14:00)
[2022-03-22] MEDS ORDERED: ACETAMINOPHEN 325 MG TABLET PO PRN (14:00)
[2022-03-22] MEDS ORDERED: ONDANSETRON 4 MG/2 ML VIAL IV PRN (14:00)
[2022-03-22] MEDS: carvediloL 3.125 MG TABLET PO SCH (14:17)
[2022-03-22] MEDS ORDERED: LEVOFLOXACIN INJ 750 MG/150 ML PREMIX IV ONE (15:00)
[2022-03-22] MEDS ORDERED: SODIUM BICARBONATE 50 MEQ/50 ML VIAL IV ONE ×2 (16:08→18:15)
[2022-03-22] MEDS ORDERED: SODIUM BICARB IV ONE ×3 (17:00→21:30)
[2022-03-22 17:19] LABS: Arterial Base Excess iSTAT -12 MMOL/L (-2.5-2.5); Arterial Bicarbonate iSTAT 13.6 MMOL/L (20-26); Arterial O2 Saturation iSTAT 75 % (95-100); Arterial PCO2 iSTAT 30 MM HG (35-48); Arterial PO2 iSTAT 45 MM HG (80-95); Arterial Total CO2 iSTAT 14 MMO/L (23-27); Arterial pH iSTAT 7.272 (7.35-7.45)
[2022-03-22] MEDS: INSULIN REGULAR 100 UNIT/ML SUBCUT SCH ×2 (17:19→21:01)
[2022-03-22 18:26] LABS: Arterial Base Excess iSTAT -12 MMOL/L (-2.5-2.5); Arterial Bicarbonate iSTAT 13.4 MMOL/L (20-26); Arterial O2 Saturation iSTAT 92 % (95-100); Arterial PCO2 iSTAT 28 MM HG (35-48); Arterial PO2 iSTAT 71 MM HG (80-95); Arterial Total CO2 iSTAT 14 MMO/L (23-27); Arterial pH iSTAT 7.294 (7.35-7.45)
[2022-03-22] MEDS: ALBUTEROL/IPRATROPIUM 3 ML NEB RESP TX SCH (19:56)
[2022-03-22] MEDS ORDERED: HEPARIN 5,000 UNIT/1 ML VIAL SUBCUT SCH (21:00)
[2022-03-22] MEDS: FUROSEMIDE 40 MG/4 ML VIAL IV SCH (21:33)
[2022-03-23] MEDS: ALBUTEROL/IPRATROPIUM 3 ML NEB RESP TX SCH ×4 (00:03→20:00)
[2022-03-23 05:50] LABS: Basophils % 0.2 % (0.0-0.8); Eosinophils % 0.5 % (0.00-10.9); Hemoglobin 6.8 GM/DL (12.0-16.0); Immature Granulocytes % 0.5 %; Immature Granulocytes Absolute 0.02 #; Lymphocytes # 0.8 10*3/uL (1.4-4.0); Lymphocytes % 18.9 % (21.3-54.2); Mean Corpuscular HGB Conc 30.9 GM/DL (32-36); Mean Corpuscular Volume 76.9 FL (87-102); Mean Platelet Volume 11.3 FL (9.6-12.0); Monocytes # 0.7 10*3/uL (0.11-0.8); Monocytes % 15.2 % (1.7-12.7); NRBC # 0.02 10*3/uL; Neutrophils % 64.7 % (38.7-73.9); Platelet Count 212 T/CUMM (130-400); Red Blood Count 2.86 MC/CUMM (3.8-5.5); White Blood Count 4.3 T/CUMM (4-12)
[2022-03-23 06:01] LABS: % Iron Saturation 5.6 % (18-50); Phosphorous 5.3 MG/DL (2.5-4.9)
[2022-03-23 06:05] LABS: Folate 11.65 NG/ML (5.38-24.0); Vitamin B12 954 PG/ML (211-911)
[2022-03-23 06:17] LABS: Parathyroid Hormone Intact 91.1 PG/ML (18.4-80.1)
[2022-03-23 06:35] LABS: Calcium 7.9 MG/DL (8.5-10.1); Osmolality,Calculated 301.8 MOS/KG (273-304); Potassium 4.4 MMOL/L (3.5-5.1); Thyroid Stimulating Hormone 3.02 uIU/ml (0.358-3.74)
[2022-03-23] MEDS: LEVOTHYROXINE 25 MCG TABLET PO SCH (06:44)
[2022-03-23 06:55] LABS: Hepatitis B Core IgM Quant 0.13 Index; Hepatitis B Surface Ag Quant < 0.10 Index; Hepatitis B Surface Ag Result Non-Reactive (NonReactive); Hepatitis C Virus Ab Quant 0.06 Index; Hepatitis C Virus Ab Result Non-Reactive (NonReactive)
[2022-03-23 07:05] LABS: Sedimentation Rate-Westergren 71 MM/HR (0-20)
[2022-03-23] MEDS ORDERED: SODIUM CHLORIDE 0.9% 1,000 ML IV PRN (07:19)
[2022-03-23] MEDS: INSULIN REGULAR 100 UNIT/ML SUBCUT SCH ×4 (08:20→21:07)
[2022-03-23] MEDS: ROSUVASTATIN 10 MG TABLET PO SCH (08:37)
[2022-03-23] MEDS: valACYclovir 500 MG TABLET PO SCH (08:38)
[2022-03-23] MEDS: FUROSEMIDE 40 MG/4 ML VIAL IV SCH ×2 (08:38→16:07)
[2022-03-23] MEDS: metOLazone 5 MG TABLET PO SCH (08:39)
[2022-03-23] MEDS: carvediloL 3.125 MG TABLET PO SCH ×2 (08:39→16:08)
[2022-03-23] MEDS: FERROUS SULFATE 325 MG TABLET PO SCH ×3 (08:40→21:06)
[2022-03-23] MEDS ORDERED: FERROUS SULFATE 325 MG TABLET PO SCH (09:00)
[2022-03-23] MEDS ORDERED: ERGOCALCIFEROL 50,000 UNIT CAPSULE PO SCH (09:00)
[2022-03-23 09:02] LABS: Hemoglobin A1 (Alkaline) 98.2 % (96.5-98.5); Hemoglobin A2 (Alkaline) 1.8 % (1.5-3.5)
[2022-03-23 14:55] LABS: Hematocrit 24.6 VOL% (35.7-47.0); Hemoglobin 7.7 GM/DL (12.0-16.0)
[2022-03-24] MEDS: ALBUTEROL/IPRATROPIUM 3 ML NEB RESP TX SCH ×4 (00:07→19:29)
[2022-03-24 05:14] LABS: Basophils % 0.2 % (0.0-0.8); Eosinophils % 0.3 % (0.00-10.9); Hematocrit 24.2 VOL% (35.7-47.0); Hemoglobin 7.4 GM/DL (12.0-16.0); Immature Granulocytes % 0.5 %; Immature Granulocytes Absolute 0.03 #; Lymphocytes # 1.1 10*3/uL (1.4-4.0); Lymphocytes % 19.8 % (21.3-54.2); Mean Corpuscular HGB Conc 30.6 GM/DL (32-36); Mean Corpuscular Volume 78.3 FL (87-102); Mean Platelet Volume 11.5 FL (9.6-12.0); Monocytes # 0.9 10*3/uL (0.11-0.8); Monocytes % 15.1 % (1.7-12.7); NRBC # 0.02 10*3/uL; Neutrophils % 64.1 % (38.7-73.9); Platelet Count 219 T/CUMM (130-400); Red Blood Count 3.09 MC/CUMM (3.8-5.5); Red Cell Distribution Width 20.8 % (9.3-17.3); White Blood Count 5.8 T/CUMM (4-12)
[2022-03-24 05:25] LABS: Calcium 7.8 MG/DL (8.5-10.1); Osmolality,Calculated 295.3 MOS/KG (273-304)
[2022-03-24] MEDS: LEVOTHYROXINE 25 MCG TABLET PO SCH (07:29)
[2022-03-24] MEDS: FERROUS SULFATE 325 MG TABLET PO SCH ×3 (09:04→20:27)
[2022-03-24] MEDS: valACYclovir 500 MG TABLET PO SCH (09:05)
[2022-03-24] MEDS: metOLazone 5 MG TABLET PO SCH (09:06)
[2022-03-24] MEDS: ROSUVASTATIN 10 MG TABLET PO SCH (09:08)
[2022-03-24] MEDS: FUROSEMIDE 40 MG/4 ML VIAL IV SCH ×2 (09:08→16:23)
[2022-03-24] MEDS: INSULIN REGULAR 100 UNIT/ML SUBCUT SCH ×4 (09:19→20:28)
[2022-03-24] MEDS ORDERED: LEVOFLOXACIN INJ 500 MG/100 ML PREMIX IV SCH (15:00)
[2022-03-24] MEDS: carvediloL 6.25 MG TABLET PO SCH (16:23)
[2022-03-25] MEDS: ALBUTEROL/IPRATROPIUM 3 ML NEB RESP TX SCH ×3 (00:14→14:04)
[2022-03-25 05:39] LABS: Basophils % 0.2 % (0.0-0.8); Eosinophils % 0.5 % (0.00-10.9); Hematocrit 25.1 VOL% (35.7-47.0); Hemoglobin 7.7 GM/DL (12.0-16.0); Immature Granulocytes % 0.5 %; Immature Granulocytes Absolute 0.03 #; Lymphocytes # 1.3 10*3/uL (1.4-4.0); Lymphocytes % 23.4 % (21.3-54.2); Mean Corpuscular HGB Conc 30.7 GM/DL (32-36); Mean Platelet Volume 10.9 FL (9.6-12.0); Monocytes # 0.8 10*3/uL (0.11-0.8); Monocytes % 13.3 % (1.7-12.7); NRBC # 0.02 10*3/uL; Neutrophils % 62.1 % (38.7-73.9); Platelet Count 217 T/CUMM (130-400); Red Blood Count 3.22 MC/CUMM (3.8-5.5); Red Cell Distribution Width 21.2 % (9.3-17.3); White Blood Count 5.7 T/CUMM (4-12)
[2022-03-25 06:01] LABS: Calcium 7.9 MG/DL (8.5-10.1); Osmolality,Calculated 297.3 MOS/KG (273-304); Potassium 3.9 MMOL/L (3.5-5.1)
[2022-03-25] MEDS: LEVOTHYROXINE 25 MCG TABLET PO SCH (06:49)
[2022-03-25] MEDS ORDERED: SODIUM BICARBONATE 650 MG TABLET PO SCH (09:00)
[2022-03-25] MEDS ORDERED: ISOSORBIDE MONONITRATE 30 MG TABLET PO SCH (09:00)
[2022-03-25] MEDS: valACYclovir 500 MG TABLET PO SCH (09:11)
[2022-03-25] MEDS: ROSUVASTATIN 10 MG TABLET PO SCH (09:12)
[2022-03-25] MEDS: FERROUS SULFATE 325 MG TABLET PO SCH ×2 (09:12→15:48)
[2022-03-25] MEDS: metOLazone 5 MG TABLET PO SCH (09:13)
[2022-03-25] MEDS: INSULIN REGULAR 100 UNIT/ML SUBCUT SCH ×2 (09:18→12:51)
[2022-03-25] MEDS: FUROSEMIDE 40 MG/4 ML VIAL IV SCH (09:29)
[2022-03-25] MEDS: carvediloL 6.25 MG TABLET PO SCH (11:25)
[2022-03-25] MEDS: carvediloL 3.125 MG TABLET PO SCH (16:05)
[2022-03-25 16:32] VITALS: BP 145/67
[2022-03-25] MEDS ORDERED: carvediloL 12.5 MG TABLET PO SCH (17:00)
== END 2022-03-25 17:31 | disposition home health service (06) | DRG 194 ==
LOC: N.ED 11:33 → N.EDINP 13:51 → N.TELES 15:44
PROVIDERS: ADMIT Hospitalist; ATTEND Hospitalist